=== PATIENT | male | born 1975 | race Two or more races ===

== ENCOUNTER 2024-08-25 15:35 | Emergency (ER) | payer OTHER ==
[~2024-08-25] VITALS: Ht 182.9 cm; Wt 50.0 kg
--- NOTE | 2024-08-25 15:57 | ED.PDOC ---
HPI Comments 49y M who presents to the ED via EMS for chief complaint of SVT. Per EMS, pt lives by himself in the back of a house and pt roommate who lives in the front noticed pt has been having increased weakness and not gotten out of bed for the past 4 days and EMS was called to the scene. EMS arrived and noted pt was in SVT and pt was given 6 mg adenosine and another round of 12 mg adenosine and pt heart rate went from 50's to 140's and has stayed in the 140's upon arrival to the ED and has converted to NSR. Pt now in the ED, noted to have malaise and weakness and appears frail. Pt has noted history of colon cancer and receives chemo but due to his weakness, he has not gone to chemo in the past 2 weeks. Pt otherwise denies any other symptoms at this time. Time Seen by MD: 15:54 Reviewed Notes: Nurses Notes, Dialysis Equipment Technician Notes, Medications, Allergies (No allergies to medications) Allergies: Coded Allergies: NO KNOWN ALLERGIES (Unverified , 08/25/24) Information Source: Patient, Emergency Med Personnel Mode of Arrival: EMS Brought in by: EMS Severity: Moderate Timing: Days Duration: Since onset Prehospital treatment: Treatment (adenosine) Onset: At Rest Cardiac Risk Factors: HTN PE Risk Factors: Immobilization History of: Other (colon cancer) Modifying Factors: Nothing Associated Signs and Symptoms: None Past Medical History PAST MEDICAL HISTORY: Cancer, HTN Surgical History: Denies all surgeries Family History Family History: Family hx of stroke Social History Smoker: Non-Smoker Alcohol: Occasionally Drugs: Marijuana Lives In: Home Constitutional: reports: fatigue, malaise, weakness; denies: chills, diaphoresis, fever, sweats, others EENTM: denies: blurred vision, double vision, ear bleeding, ear discharge, ear drainage, ear pain, ear ringing, eye pain, eye redness, hearing loss, mouth pain, mouth swelling, nasal discharge, nose bleeding, nose congestion, nose pain, photophobia, tearing, throat pain, throat swelling, voice changes, others Respiratory: denies: cough, hemoptysis, orthopnea, SOB at rest, shortness of breath, SOB with excertion, stridor, wheezing, others Cardiovascular: denies: chest pain, dizzy spells, diaphoresis, Dyspnea on exertion, edema, irregular heart beat, left arm pain, lightheadedness, palpitations, PND, syncope, others Gastrointestinal: denies: abdomen distended, abdominal pain, blood streaked bowels, constipated, diarrhea, dysphagia, difficulty swallowing, hematemesis, melena, nausea, poor appetite, poor fluid intake, rectal bleeding, rectal pain, vomiting, others Genitourinary: denies: burning, dysuria, flank pain, frequency, hematuria, incontinence, penile discharge, penile sore, pain, testicle pain, testicle swelling, urgency, others Neurological: denies: dizziness, fainting, headache, left sided numbness, left sided weakness, numbness, paresthesia, pre-existing deficit, right sided numbness, right sided weakness, seizure, speech problems, tingling, tremors, weakness, others Musculoskeletal: denies: back pain, gout, joint pain, joint swelling, muscle pain, muscle stiffness, neck pain, others Integumetry: denies: bruises, change in color, change in hair/nails, dryness, laceration, lesions, lumps, rash, wounds, others Allergic/Immunocompromised: denies: Difficulty Healing, Frequent Infections, Hives, Itching, others Hematologic/Lymphatic: denies: anemia, blood clots, easy bleeding, easy bruising, swollen glands, others Endocrine: denies: excessive hunger, excessive sweating, excessive thirst, excessive urination, flushing, intolerance to cold, intolerance to heat, unexplained weight gain, unexplained weight loss, others Psychiatric: denies: anxiety, bipolar disorder, depression, hopeless, panic disorder, schizophrenia, sleepless, suicidal, others All Other Systems: Reviewed and Negative Physical Exam General Appearance: Cachectic, Moderate Distress HEENT: Pale Conjuntivae (L), Pale Conjuntivae (R), Pharynx Normal, TMs Normal Neck: Full Range of Motion, Non-Tender, Normal, Normal Inspection Respiratory: Chest Non-Tender, Lungs Clear, No Accessory Muscle Use, No Respiratory Distress, Normal Breath Sounds Cardiovascular: No Edema, No JVD, No Murmur, No Gallop, Tachycardia Breast Exam: Deferred Gastrointestinal: Diffuse, No Organomegaly, No Pulsatile Mass, Normal Bowel Sounds, Soft, Tenderness Genitalia: Deferred Pelvic: Deferred Rectal: Deferred Extremities: No calf tenderness, Normal capillary refill, No pedal edema Musculoskeletal : Apperance: Normal Neurologic: elevated motorman II-XII nml as Tested, Motor Weakness, Normal Affect, No Sensory Deficits, Other (Lethargy) Cerebellar Function: Unable to Test Reflexes: Normal Skin: Dry, Warm, Other (The patient has redness to the left buttocks area radiating to the groin consistent with a significant infection) Lymphatic: No Adenopathy Was a procedure done? Was a procedure done?: No CP Differential Dx Differential Diagnosis: A-fib, A-Flutter, PVC's Other Differential Diagnosis colon cancer, cachexia, Differential Diagnosis: HTN Essential, HTN Accelerated X-Ray, Labs, Meds, VS Vital Signs Date Time Temp Pulse Resp B/P (MAP) Pulse Ox O2 Delivery O2 Flow Rate FiO2 08/25/24 19:54 98.4 141 43 111/85 (94) 96 98.4 08/25/24 19:54 141 43 96 Room Air* 0 21 08/25/24 16:00 139 08/25/24 15:42 140 08/25/24 15:35 98.0 142 28 152/76 (101) 98 98.0 Lab Test 08/25/24 19:17 08/25/24 17:08 08/25/24 16:02 08/25/24 15:57 Range/Units Lactic Acid Level 4.8 *H 4.5 *H 0.4-2.0 mmol/L Urine Color Yellow Yellow Urine Clarity Turbid H Clear Urine pH 6.0 5.0-9.0 Urine Specific [place] 1.025 1.001-1.035 Urine Protein 1+ H Negative Urine Ketones Negative Negative Urine Blood Trace H Negative /uL Urine Nitrite Negative Negative Urine Bilirubin Negative Negative Urine Urobilinogen 6 Negative mg/dL Urine Leukocyte Esterase Negative Negative /uL Urine RBC 2 0 - 3 /hpf Urine Microscopic WBC 1 0-3 /HPF Urine Squamous Epithelial Cells Few <5 /hpf Urine Bacteria None seen None Seen /hpf Urine Hyaline Casts Mod 0 - 2 /lpf Urine Mucus Few None Seen Urine Glucose Normal Normal mg/dL Urine Opiates Screen Neg NEGATIVE Urine Fentanyl Screen Neg NEGATIVE Urine Barbiturates Screen Neg NEGATIVE Urine Phencyclidine Screen Neg NEGATIVE Urine Amphetamines Screen Neg NEGATIVE Urine Benzodiazepines Screen Neg NEGATIVE Urine Cocaine Screen Neg NEGATIVE Urine Cannabinoids Screen Pos NEGATIVE Blood Gas Specimen Type Arterial Blood Gas Sample Site Left radial Blood Gas Patient Temperature 37.0 Arterial Blood Date Drawn [id number] Arterial Blood pH 7.560 *H 7.350-7.450 Arterial Blood Partial Pressure CO2 17.1 *L 35.0-48.0 mmHg Arterial Blood Partial Pressure O2 121.6 H 83.0-108.0 mmHg Arterial Blood HCO3 15.0 L 21.0-28.0 mmol/L Arterial Blood Oxygen Saturation 98.2 H 94.0-98.0 % Arterial Blood Base Excess -4.2 L -2.0-3.0 mmol/L Arterial Blood Oxyhemoglobin 96.1 94.0-98.0 % Arterial Blood Carboxyhemoglobin 1.8 H 0.5-1.5 % Arterial Blood Methemoglobin 0.3 0.0-1.5 % Hemant Test Yes Blood Gas Total Hemoglobin 14.70 13.5-17.5 g/dL Blood Gas Modality Room air FiO2 % 21.0 Blood Gas Critical Value Read Back yes Blood Gas Notified Whom Blood Gas Notified Time [id number] Blood Gas Notified By leather repairer tyler White Blood Count 28.9 H 4.4-10.8 10^3/uL Red Blood Count 4.75 4.5-5.90 10^6/uL Hemoglobin 15.0 13.5-17.5 g/dL Hematocrit 45.4 41.0-53.0 % Mean Corpuscular Volume 95.5 80.0-100.0 fL Mean Corpuscular Hemoglobin 31.5 28.0-32.0 pg Mean Corpuscular Hemoglobin Concent 32.9 32.0-36.0 g/dL Red Cell Distribution Width 16.7 H 11.8-14.3 % Platelet Count 318 140-450 10^3/uL Mean Platelet Volume 8.5 6.9-10.8 fL Neutrophils (%) (Auto) 37.0-80.0 % Lymphocytes (%) (Auto) 10.0-50.0 % Monocytes (%) (Auto) 0.0-12.0 % Basophils (%) (Auto) 0.0-2.0 % Neutrophils # (Auto) 1.6-8.6 10 ^3/uL Lymphocytes # (Auto) 0.4-5.4 10 ^3/uL Monocytes # (Auto) 0-1.3 10 ^3/uL Differential Total Cells Counted 100.0 100 Neutrophils % (Manual) 64 37.0-80.0 Band Neutrophils % (Manual) 23 Lymphocytes % (Manual) 6 L 10.0-50.0 Monocytes % (Manual) 7 0-12 Eosinophils % (Manual) 0 0-7 Basophils % (Manual) 0 0.0-2.0 Metamyelocytes % (manual) 0 Myelocytes % (Manual) 0 Promyelocytes % (Manual) 0 Blast Cells % (Manual) 0 Reactive Lymphocytes 0 Platelet Estimate Adequate Large Platelets Few Anisocytosis (manual) Slight Prothrombin Time 36.7 H 9.3-11.8 sec Prothrombin Time INR 3.97 H 0.9-1.15 Activated Partial Thromboplast Time 35.3 H 24.5-34.5 SEC Sodium Level 145 136-145 mmol/L Potassium Level 3.2 L 3.5-5.1 mmol/L Chloride Level 113 H 98-107 mmol/L Carbon Dioxide Level 14 L 20-31 mmol/L Anion Gap 18 H 5-15 Blood Urea Nitrogen 53 H 9-23 mg/dL Creatinine 0.93 0.700-1.30 mg/dL Glomerular Filtration Rate Calc 100 >90 mL/min BUN/Creatinine Ratio 57.0 H 10.0-20.0 Serum Glucose 191 H 74-106 mg/dL Calcium Level 9.2 8.7-10.4 mg/dL Total Bilirubin 0.6 0.2-1.0 mg/dL Aspartate Amino Transferase (AST) 52 H 13-40 U/L Alanine Aminotransferase (ALT) 64 H 7-40 U/L Alkaline Phosphatase 502 H 46-116 U/L Ammonia 185 *H 11-32 umol/L Total Protein 6.2 5.7-8.2 g/dL Albumin 3.4 3.2-4.8 g/dL Plasma/Serum Blood Alcohol < 3.0 <10 mg/dL Current Medications Medications (Trade) Dose Ordered Sig/Radha Route Start Time Stop Time Status Last Admin Sodium Chloride 1,000 ml @ 150 mls/hr Q6H40M ONCE IV 08/25/24 15:45 08/25/24 22:24 08/25/24 16:17 Vancomycin HCl 200 ml @ 200 mls/hr ONCE ONCE IV 08/25/24 17:00 08/25/24 17:59 DC 08/25/24 18:19 Ceftriaxone Sodium 50 ml @ 100 mls/hr ONCE ONCE IV 08/25/24 17:00 08/25/24 17:29 DC 08/25/24 17:39 Sodium Chloride 1,000 ml @ 1,000 mls/hr Q1H ONCE IV 08/25/24 19:00 08/25/24 19:59 DC 08/25/24 19:10 CAT scan of the abdomen and pelvis shows: IMPRESSION: 1. Soft tissue emphysema, soft tissue swelling and soft tissue fat stranding of the subcutaneous tissue of the left groin with extension into the left testicle and left gluteal region. Fasciitis can not be excluded. Clinical correlation is recommended. 2. Hepatomegaly with fatty infiltration. 3. Fecal retention in the colon consistent with constipation. 4. Umbilical hernia containing fat. 5. No obstructive uropathy. We are worried about sepsis so we did go ahead and get blood cultures on the patient. The patient's lactic acid level was also done After cultures, the patient was given Rocephin as well as vancomycin IV piggyback. The patient's CBC shows an elevated white blood cell count of 28.9 The rest of the CBC is within normal limits. The chemistry panel is within normal limits except for an elevated ammonia of 185. Liver enzymes are elevated. At this time we are contacting [place] and we will make a decision as far as if the patient will be transferred or admitted to our facility An ABG was done with a pH of 7.56/pCO2 of 17 and a PO2 of 121.6 A Escudero catheter is being placed at this time We did contact the surgeon after reviewing the CT results. 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 We did speak with [place] and although they did authorize for the patient to be admitted to our facility, because of the higher level of care they also authorize it we can start to transfer the patient At this time, the patient is being transferred to [facility]. Images Reviewed?: Images reviewed and evaluated by me Time of 1ST Reevaluation: 16:30 Reevaluation 1ST: Unchanged Patient Education/Counseling: Diagnosis, Treatment, Prognosis Family Education/Counseling: No Family Present Sepsis Sepsis Reasesment Focused Exam Orders: Laboratory Tests 08/25/24 15:57: Lactic Acid Level 4.5 08/25/24 19:17: Lactic Acid Level 4.8 Departure 1 Departure Time of Disposition: 18:46 Impression: Primary Impression: Hepatic encephalopathy Additional Impressions: Metastatic colon cancer to liver Generalized weakness Sepsis Qualified Codes: A41.9 - Sepsis, unspecified organism Fourniers gangrene Electrolyte imbalance Disposition: 51 HOSPICE/MEDICAL FACILITY Condition: Guarded Critical Care Note Critical Care Time?: Yes (1 hr-critical care time only) Stability Stability form required: Yes Stable for transfer: Intended for transfer (Health plan request transfer), To designated facility Heart Score Heart Score: Heart Score Response (Comments) Value History Slightly Suspicious 0 EKG Normal 0 Age 45-64 1 Risk Factors 1 or 2 risk factors 1 Troponin N/A 0 Total 2 I personally scribed for NGHIA VÁZQUEZ MD ([email or web address]) on 08/25/24 at 15:57. Electronically submitted by Jana Titus ([facility] NGHIA VÁZQUEZ MD Aug 25, 2024 15:57
[2024-08-25 16:09] LABS: Base Excess -4.2 mmol/L (-2.0-3.0)
[2024-08-25] MEDS: SODIUM CHLORIDE 0.9% 1,000 ML IV ONE ×2 (16:17→19:10)
[2024-08-25 16:19] LABS: Hematocrit 45.4 % (41.0-53.0); Mean Corpuscular Hemoglobin 31.5 pg (28.0-32.0); Mean Corpuscular Hgb Conc. 32.9 g/dL (32.0-36.0); Mean Corpuscular Volume 95.5 fL (80.0-100.0); Platelet Count (auto) 318 10^3/uL (140-450); Red Blood Cells 4.75 10^6/uL (4.5-5.90); Red Cell Distribution Width 16.7 % (11.8-14.3); White Blood Cell 28.9 10^3/uL (4.4-10.8)
[2024-08-25 16:22] LABS: Basophils % (manual) 0 (0.0-2.0); Blast Cells 0; Eosinophils % (manual) 0 (0-7); Metamyelocytes % 0; Myelocytes % 0; Promyelocytes % 0; Reactive Lymphocytes 0
[2024-08-25 16:36] LABS: Albumin 3.4 g/dL (3.2-4.8); Anion Gap 18 (5-15); Bilirubin, Total 0.6 mg/dL (0.2-1.0); Calcium 9.2 mg/dL (8.7-10.4); Total Protein 6.2 g/dL (5.7-8.2)
[2024-08-25 16:39] LABS: Alanine Aminotransferase 64 U/L (7-40); Alkaline Phosphatase 502 U/L (46-116); Aspartate Aminotransferase 52 U/L (13-40); Blood Alcohol < 3.0 mg/dL (<10); Blood Urea Nitrogen 53 mg/dL (9-23); Carbon Dioxide 14 mmol/L (20-31); Chloride 113 mmol/L (98-107); Glucose 191 mg/dL (74-106); Potassium 3.2 mmol/L (3.5-5.1); Sodium 145 mmol/L (136-145)
--- NOTE | 2024-08-25 16:45 | DVH ---
EXAM: XR Chest, 1 View CLINICAL INDICATION: pain TECHNIQUE: Frontal view of the chest. COMPARISON: None FINDINGS: LUNGS AND PLEURAL SPACES: See below. HEART: Unremarkable. No cardiomegaly. MEDIASTINUM: Unremarkable. Normal mediastinal contour. BONES/JOINTS: Unremarkable. No acute fracture. TUBES, LINES AND DEVICES: Right-sided Mediport with the distal tip in the SVC. No pneumothorax. OTHER FINDINGS: . IMPRESSION: No acute cardiopulmonary process.
--- NOTE | 2024-08-25 16:53 | DVH ---
EXAM: CT Abdomen and Pelvis Without Intravenous Contrast CLINICAL INDICATION: pain TECHNIQUE: Axial computed tomography images of the abdomen and pelvis without intravenous contrast. This CT exam was performed using one or more of the following dose reduction techniques: automated exposure control, adjustment of the mA and/or kV according to patient size, and/or use of iterative r econstruction technique. CONTRAST: RADIATION DOSE: CTDIvol = 5.91 mGy, DLP = 418.43 mGy-cm COMPARISON: None FINDINGS: ARTIFACTS: Motion artifact. LUNG BASES: Unremarkable. No mass. No consolidation. ABDOMEN: LIVER: Hepatomegaly with fatty infiltration. GALLBLADDER AND BILE DUCTS: Cholecystectomy. No ductal dilation. PANCREAS: Unremarkable. No ductal dilation. SPLEEN: Unremarkable. No splenomegaly. ADRENALS: Unremarkable. No mass. KIDNEYS AND URETERS: Unremarkable. No stones within either kidney. No hydronephrosis. STOMACH AND BOWEL: Fecal retention in the colon consistent with constipation. No obstruction. No mucosal thickening. PELVIS: APPENDIX: No findings to suggest acute appendicitis. BLADDER: Unremarkable. No stones. REPRODUCTIVE: Unremarkable as visualized. ABDOMEN and PELVIS: INTRAPERITONEAL SPACE: Unremarkable. No free air. No significant fluid collection. BONES/JOINTS: No acute fracture. No dislocation. SOFT TISSUES: Soft tissue emphysema, soft tissue swelling and soft tissue fat stranding of the subc utaneous tissue of the left groin with extension into the left testicle and left gluteal region. Fasc iitis can not be excluded. Clinical correlation is recommended. Umbilical hernia containing fat. VASCULATURE: Unremarkable. No abdominal aortic aneurysm. LYMPH NODES: Unremarkable. No enlarged lymph nodes. OTHER FINDINGS: . IMPRESSION: 1. Soft tissue emphysema, soft tissue swelling and soft tissue fat stranding of the subcutaneous tis maday of the left groin with extension into the left testicle and left gluteal region. Fasciitis can no t be excluded. Clinical correlation is recommended. 2. Hepatomegaly with fatty infiltration. 3. Fecal retention in the colon consistent with constipation. 4. Umbilical hernia containing fat. 5. No obstructive uropathy.
[2024-08-25 17:09] LABS: Urine Bacteria None Seen /hpf (None Seen)
[2024-08-25 17:15] LABS: Anisocytosis Slight; Band Neutrophils % (manual) 23; Large Platelets FEW; Lymphocytes % (manual) 6 (10.0-50.0); Monocytes % (manual) 7 (0-12); Platelet Estimate Adequate
[2024-08-25 17:24] LABS: Urine Blood TRACE /uL (Negative); Urine Clarity Turbid (Clear); Urine Color Yellow (Yellow); Urine Hyaline Cast MOD /lpf (0 - 2); Urine Mucus FEW (None Seen); Urine Protein, UAD 1+ (Negative); Urine Specific Gravity 1.025 (1.001-1.035); Urine Squamous Epithelial Cell FEW /hpf (<5); Urine Urobilinogen 6 mg/dL (Negative); Urine WBC 1 /HPF (0-3)
[2024-08-25 17:34] LABS: INR 3.97 (0.9-1.15); Partial Thromboplastin Time 35.3 SEC (24.5-34.5); Prothrombin Time 36.7 sec (9.3-11.8)
[2024-08-25 17:36] LABS: Cannabinoid Screen, Urine Pos (NEGATIVE)
[2024-08-25] MEDS: cefTRIAXone 1GM/50ML D5W 50 ML IV ONE (17:39)
--- NOTE | 2024-08-25 17:40 | ECG ---
[facility] Test Date: 2024-08-25 Test Time: 15:42:02 Pat Name: NADIA GRIFFIN Department: ED Room: Gender: M Rhinestone Setter: ME : 1975 Requested By: NGHIA VÁZQUEZ Order Number: [id number] Reading MD: Mj Rojas Measurements Intervals [place] Rate: 140 P: 69 SD: 117 QRS: -65 QRSD: 83 T: 57 QT: 299 QTc: 457 Interpretive Statements Sinus tachycardia Probable left atrial enlargement Left anterior fascicular block Electronically Signed On 08-26-2024 9:35:05 PDT by Mj Rojas Please click the below link to view image of tracing.
[2024-08-25] MEDS: VANCOMYCIN 1GM/200ML PM 200 ML IV ONE (18:19)
[2024-08-25 18:33] LABS: Amphetamine Screen, Urine Neg (NEGATIVE); Barbiturate Scree,Urine Neg (NEGATIVE); Benzodiazephine Screen, Urine Neg (NEGATIVE); Cocaine Screen, Urine Neg (NEGATIVE); Opiate Scree,Urine Neg (NEGATIVE); Phencyclidine Screen, Urine Neg (NEGATIVE)
[2024-08-25 18:34] LABS: Lactic Acid w/Reflex 4.5 mmol/L (0.4-2.0)
[2024-08-25 19:54] VITALS: PULSE 141; RESP 43; O2SAT 96
[2024-08-25] MEDS ORDERED: CLINDAMYCIN 600MG IV 50 ML IV ONE (20:45)
[2024-08-25 21:47] VITALS: BP 119/83; PULSE 122; RESP 18; TEMP 98.1; O2SAT 96
== END 2024-08-25 22:47 | disposition hospice, inpatient (51) ==
LOC: EDBD 15:35 → ER 15:42
DX: K76.82 Hepatic encephalopathy (principal); C18.9 Malignant neoplasm of colon, unspecified; C78.7 Secondary malignant neoplasm of liver and intrahepatic bile duct; A41.9 Sepsis, unspecified organism; N49.3 Fournier gangrene; I10 Essential (primary) hypertension; E87.8 Other disorders of electrolyte and fluid balance, not elsewhere classified; Z79.899 Other long term (current) drug therapy
CPT/HCPCS: 36415; 36600; 71045; 74176; 80053; 80307; 80320; 81001; 82140; 82805; 83605; 85007; 85027; 85610; 85730; 87040; 87076; 93005; 96361; 96365; 96367; 99291; J0696; J3370; J3490